=== PATIENT | male | born 1985 | race African-American/Black ===

== ENCOUNTER 2017-07-12 21:24 | Emergency (ER) | payer OTHER ==
[~2017-07-12] VITALS: Ht 167.6 cm; Wt 109.0 kg
[2017-07-12] MEDS ORDERED: SODIUM CHLORIDE 0.9% 1,000 ML IV ONE (22:30)
[2017-07-12] MEDS ORDERED: PROCHLORPERAZINE EDISYLATE 5 MG/ML 2 ML VIAL IVP ONE (22:30)
[2017-07-12] MEDS ORDERED: DiphenhydrAMINE HCL 50 MG/ML VIAL IVP ONE (22:30)
[2017-07-12 23:03] LABS: GLUCOSE,POINT OF CARE 108 MG/DL (70-110)
[2017-07-12 23:05] VITALS: BP 131/63
== END 2017-07-12 23:30 | disposition home or self-care (01) ==
LOC: EMS 21:28
DX: G43.909 Migraine, unspecified, not intractable, without status migrainosus (principal); I10 Essential (primary) hypertension; F17.210 Nicotine dependence, cigarettes, uncomplicated; F12.90 Cannabis use, unspecified, uncomplicated
CPT/HCPCS: 82948; 82962; 96361; 96374; 96375; 99284; J0780; J1200; J7030

== ENCOUNTER 2017-07-13 08:45 | Emergency (ER) | payer OTHER ==
[~2017-07-13] VITALS: Ht 167.6 cm; Wt 109.0 kg
[2017-07-13 10:15] VITALS: BP 143/89
== END 2017-07-13 10:59 | disposition home or self-care (01) ==
LOC: EMS 08:46
DX: J32.9 Chronic sinusitis, unspecified (principal); I10 Essential (primary) hypertension; F17.210 Nicotine dependence, cigarettes, uncomplicated; F12.90 Cannabis use, unspecified, uncomplicated
CPT/HCPCS: 70450; 99284; 99406